=== PATIENT | male | born 1955 | race Caucasian/White ===

== ENCOUNTER → 2016-07-03 | Outpatient (CLI) | payer OTHER ==
[~2016-07-03] MED LIST: IOPAMIDOL (ISOVUE-300) 100 ML BTL IV ONE
== END ==
LOC: CIMAGING 13:16
PROVIDERS: ATTEND Internal Medicine Gastroenterology
DX: C16.9 Malignant neoplasm of stomach, unspecified (principal)
CPT/HCPCS: 71260-PO; 74177-PO; Q9967

== ENCOUNTER 2016-07-08 06:42 | Day surgery (SDC) | payer OTHER ==
[2016-07-08] MEDS ORDERED: LIDOCAINE 1% 5 ML SDV ONE (07:01)
[2016-07-08] MEDS ORDERED: LIDOCAINE 1% 2 ML INJ ID PRN (07:13)
[2016-07-08] MEDS ORDERED: LR 1,000 ML IV SCH (07:30)
[2016-07-08] MEDS ORDERED: PROPOFOL/EMULSION 500 MG/50 ML BOTTLE IV ONE (08:04)
[2016-07-08] MEDS ORDERED: LIDOCAINE 2% 5 ML SDV ONE (08:04)
[2016-07-08] MEDS ORDERED: MIDAZOLAM 2 MG/2 ML VIAL ONE (08:05)
--- NOTE | 2016-07-08 09:41 | GPN ---
[f rep st] PROCEDURE NOTE DATE OF PROCEDURE: 07/08/2016 PROCEDURE: Esophagogastroduodenoscopy with biopsy, endoscopic ultrasound. INDICATION: Mr. Mcgee is a 61-year-old male presents for staging of a gastric cancer. CONSENT: Risks, benefits, and alternatives of the procedure were discussed in great detail with the patient. Risks of infection, bleeding, perforation, and sedation were discussed. All questions answered and informed consent obtained. MEDICATIONS: Propofol. Please see Anesthesia details. ESTIMATED BLOOD LOSS: Insignificant. ESOPHAGOGASTROSCOPY EXAMINATION: The Olympus upper endoscope was introduced into the mouth and and advanced into the esophagus. The proximal and mid esophagus was normal in appearance. The GE junction was noted to be 39 cm from the gums. The patient was noted to have LA Grade A esophagitis. Biopsies were taken. The stomach was entered and closely examined, including retroflexed views of angularis, cardia and fundus. A small hiatal hernia was noted. The mucosa in the antrum was noted to be erythematous in a patchy distribution. Biopsies were taken. At approximately 60 cm from the gums, on the incisura ( lesser curvature), an ulcer was seen with a small exophytic lesion of approximately 5 mm. This is the suspected area of where the cancer was seen on previous endoscopy. Kirstie ink was injected around this lesion. The duodenum and second portion of the duodenum were normal in appearance. ENDOSCOPIC ULTRASOUND EXAMINATION: The Olympus linear and radial echoendoscope were introduced in the mouth and advanced to the second portion of the duodenum. The pancreas was carefully examined from the uncinate process to the tail, where the spleen was seen. The pancreas parenchyma had hyperechoic foci. The pancreatic duct was not dilated. No dilated side branches were noted. The gallbladder was seen was normal in appearance. No obvious liver lesion was seen. The area of the ulcer (incisura) was examined. There appeared to be hypoechoic thickening but it was limited to the superficial layers consistent with a T1b lesion. No suspicious periportal, peripancreatic, perigastric or celiac nodes were appreciated. IMPRESSION: 1. Superficial cancer with no lymph node involvement. EUS stage: [id number] 2. Gastritis, status post biopsy. 3. Kirstie ink injection performed around the lesion 4. Esophagitis, status post biopsy. PLAN: 1. Follow up of biopsy results. 2. Follow up with Oncology and Surgery. /[id number]/MODL MTDD
== END 2016-07-08 10:45 | disposition home or self-care (01) ==
LOC: FSGY 06:42
PROVIDERS: ATTEND Internal Medicine Gastroenterology
DX: C16.5 Malignant neoplasm of lesser curvature of stomach, unspecified (principal); K29.60 Other gastritis without bleeding; K20.8 Other esophagitis
CPT/HCPCS: J2250; J2704